=== PATIENT | female | born 1985 | race Caucasian/White ===

== ENCOUNTER 2017-05-26 16:31 | Inpatient (IN) | payer OTHER ==
[2017-05-26] VITALS (17 sets, daily range): BP systolic 128–155; BP diastolic 72–107
[~2017-05-26] VITALS: Ht 157.5 cm; Wt 90.0 kg
[~2017-05-26 16:31] MED LIST: MOTRIN600 MG PO; TAMIFLU75 MG PO; ZOLOFT50 MG PO
[2017-05-26 18:02] LABS: EOSINOPHIL (%) 0.4 % (0-5); EOSINOPHIL COUNT 0.1 K/uL (0-0.3); IMMATURE GRANULOCYTE (%) 0.9 % (0.0-0.7); IMMATURE GRANULOCYTE COUNT 0.1 K/uL; INSTRUMENT ABS NEUTROPHIL CT 10.1 K/uL; LYMPHOCYTE COUNT 2.3 K/uL (1.0-2.8); MCH 30.1 PG (29.0-34.0); MCHC 33.6 G/DL (30.0-36.0); MCV 89.6 FL (83-99); MEAN PLAT.VOLUME 10.9 uM^3 (9.5-12.4); MONOCYTE (%) 4.8 % (3-12); MONOCYTE COUNT 0.6 K/uL (0-0.8); NEUTROPHIL (%) 76.1 % (45-76); NEUTROPHIL COUNT 10.1 K/uL (1.8-6.4); NRBC (%) 0.2 /100 WBC (0-0); PLATELET COUNT 185 K/uL (156-360); RBC DIS.WIDTH-CV 14.3 % (11.8-14.6); RBC DIS.WIDTH-SD 46.3 % (39-53); RED BLOOD COUNT 4.02 M/uL (3.80-5.20); WHITE BLOOD COUNT 13.2 K/uL (4.1-10.2)
[2017-05-26] MEDS ORDERED: ZOLOFT100 MG PO (19:15)
[2017-05-26] MEDS ORDERED: ZOLOFT50 MG PO (19:15)
[2017-05-26] MEDS ORDERED: EXPECTA PRENAT1 EACH PO (19:15)
[2017-05-26] MEDS ORDERED: HYDROXYZINE HCL50 MG PO (19:17)
[2017-05-26 20:09] LABS: UR CREATININE CONCENTRATION 141.9 MG/DL
[2017-05-26 20:15] LABS: ANION GAP 9 MEQ/L (2-14); CHLORIDE 104 MEQ/L (99-109); POTASSIUM 4.3 MEQ/L (3.7-5.4); SAMPLE HEMOLYSIS CHECK 0; SAMPLE ICTERIC CHECK 0; SAMPLE LIPEMIA CHECK 0; SODIUM 135 MEQ/L (136-147); TOTAL BILIRUBIN 0.3 MG/DL (0.0-1.0)
[2017-05-26 20:21] LABS: ALKALINE PHOSPHATASE 168 IU/L (3-129); GFR ESTIMATE (CALCULATED) > 59 mL/min/; GLUCOSE 59 mg/dL (70-99); LACTATE DEHYDROGENASE 225 IU/L (20-246); UREA NITROGEN (BUN) 10 mg/dL (9-23); URIC ACID 4.3 mg/dL (3.1-9.2)
[2017-05-27] VITALS (16 sets, daily range): BP systolic 120–143; BP diastolic 65–84
[2017-05-27 07:10] LABS: EOSINOPHIL (%) 0 % (0-5); HEMATOCRIT 35.9 % (36.0-46.0); IMMATURE GRANULOCYTE COUNT 0.2 K/uL; MCH 29.7 PG (29.0-34.0); MCHC 32.3 G/DL (30.0-36.0); MCV 91.8 FL (83-99); MEAN PLAT.VOLUME 10.9 uM^3 (9.5-12.4); MONOCYTE (%) 3.5 % (3-12); MONOCYTE COUNT 0.6 K/uL (0-0.8); NEUTROPHIL (%) 84.1 % (45-76); PLATELET COUNT 189 K/uL (156-360); RBC DIS.WIDTH-CV 14.6 % (11.8-14.6); RBC DIS.WIDTH-SD 48.3 % (39-53); RED BLOOD COUNT 3.91 M/uL (3.80-5.20); WHITE BLOOD COUNT 17.8 K/uL (4.1-10.2)
[2017-05-28] VITALS: BP 137/73
[2017-05-28 03:10] VITALS: BP 128/77
[2017-05-28 08:06] VITALS: BP 127/82
[2017-05-28] MEDS ORDERED: IBUPROFEN800 MG PO (11:08)
[2017-05-28 12:25] VITALS: BP 132/85
== END 2017-05-28 13:21 | disposition home or self-care (01) | DRG 775 ==
LOC: LDRP-OP 16:31 → 2WEST 16:33
PROVIDERS: Advanced Practice Midwife
DX: O77.0 Labor and delivery complicated by meconium in amniotic fluid (principal); Z37.0 Single live birth; Z3A.38 38 weeks gestation of pregnancy; O99.214 Obesity complicating childbirth; E66.9 Obesity, unspecified; Z68.36 Body mass index [BMI] 36.0-36.9, adult; F41.9 Anxiety disorder, unspecified; O99.344 Other mental disorders complicating childbirth; O26.893 Other specified pregnancy related conditions, third trimester; Z3A.28 28 weeks gestation of pregnancy; O76 Abnormality in fetal heart rate and rhythm complicating labor and delivery; O14.04 Mild to moderate pre-eclampsia, complicating childbirth; O70.0 First degree perineal laceration during delivery; O42.02 Full-term premature rupture of membranes, onset of labor within 24 hours of rupture; O69.1XX0 Labor and delivery complicated by cord around neck, with compression, not applicable or unspecified
CPT/HCPCS: 80053; 82570; 83615; 83735; 84156; 84550; 85025; J3475; J7120